=== PATIENT | female | born 2000 | race Caucasian/White ===

== ENCOUNTER → 2020-06-14 12:52 | Outpatient (CLI) | payer BC, SELFPAY | PROVIDERS: PCP Internal Medicine Adolescent Medicine; Visit Provider Nurse Practitioner Family | DX: G47.33 Obstructive sleep apnea (adult) (pediatric) (principal); R06.83 Snoring | CPT/HCPCS: G0399 ==

== ENCOUNTER 2020-09-16 03:32 | Emergency (ER) | payer BC, SELFPAY ==
[2020-09-16 03:43] VITALS: BP 151/102; PULSE 72; RESP 18; TEMP 36.9; O2SAT 99; BMI 54.9
--- NOTE | 2020-09-16 03:53 | ECG_ITS ---
APPROVED REPORT Exam: Resting ECG HR:73 bpm ECG Measurements Heart Rate 73 AXES MN 176 P 63 QRSd 84 QRS 37 QT 382 T 17 QTc 420 Conclusion Normal sinus rhythm Normal ECG Electronically signed by : Harry Olvera, 09/18/2020 14:49:08
--- NOTE | 2020-09-16 03:55 | XR_ITS ---
PROCEDURE: XR CHEST 2V CLINICAL HISTORY: CP COMPARISON: CR XR CHEST 2V from 10/24/2019 FINDINGS: The cardiomediastinal silhouette and pulmonary vascularity are within normal limits. There are subtle ill-defined opacities in the right infrahilar region and right lower lobe best appreciated on the lateral projection. Right upper lung field and left lung ramirez are clear. There is no pleural fluid. IMPRESSION: Findings suggesting minimal right infrahilar right lower lobe bronchopneumonia Dictated by: Dr. Parveen Arboleda MD 09/16/2020 07:43 Dr. Parveen Arboleda MD in [place] 09/16/2020 07:43
[2020-09-16 04:03] LABS: Basophils # 0.1 K/mm3 (0-0.2); Basophils % 0.5 % (0.1-2.0); Eosinophils # 0.1 K/mm3 (0.0-0.4); Eosinophils % 1.1 % (0.1-12.0); Hemoglobin 13.2 g/dL (12.2-16.2); Lymphocytes # 4.2 K/mm3 (0.7-4.5); Lymphocytes % 37.7 % (10-50); Mean Corpuscular HGB Conc 31.6 g/dL (31.8-35.4); Mean Corpuscular Hemoglobin 27.6 pg (27.0-31.2); Mean Corpuscular Volume 87.5 fl (81-99); Mean Platelet Volume 7.4 fl (7.4-10.4); Monocytes # 0.7 K/mm3 (0.1-1.0); Monocytes % 5.8 % (1.7-9.3); Neutrophils # 6.2 K/mm3 (1.8-7.8); Platelet Count 359 K/mm3 (142-424); Red Cell Distribution Width 13.3 % (11.5-17.5); White Blood Count 11.2 K/mm3 (4.5-13.0)
--- NOTE | 2020-09-16 04:03 | HMH.EDGENADL ---
ED Disposition Clinical Impression: Atypical chest pain Disposition: Home, Self-Care Condition on Discharge: Good Referrals: Harry Olvera MD [Primary Care Provider] - - Critical Care Critical Care Time: No Attestation: On 09/16/20, the high probability of a clinically significant, sudden or life threatening deterioration of the following system(s) required my full and direct attention, intervention and personal management. The time I documented below is in addition to time spent performing reported procedures but includes the following listed in this critical care notation. Medical Decision Making - Medical Records Medical records reviewed: Yes: I reviewed the patient's medical records. - Darius Inquiry Pt receiving controlled substance: No Vital Signs: 09/16/20 03:43 Temperature 98.5 F Temperature Source Oral Pulse Rate [Right] 72 Respiratory Rate 18 Blood Pressure [Right Arm] 151/102 H Blood Pressure Mean [Right Arm] 118 Blood Pressure Source [Right Arm] Automatic Cuff Blood Pressure Position [Right Arm] Sitting 02 Sat by Pulse Oximetry 99 Oxygen Delivery Method Room Air - Lab Data Lab Results 09/16/20 03:45: WBC 11.2, RBC 4.80, Hgb 13.2, Hct 42.0, MCV 87.5, MCH 27.6, MCHC 31.6 L, RDW 13.3, Plt Count 359, MPV 7.4, Neut % (Auto) 55.0, Lymph % (Auto) 37.7, [place] % (Auto) 5.8, Eos % (Auto) 1.1, Baso % (Auto) 0.5, Neut # (Auto) 6.2, Lymph # (Auto) 4.2, [place] # (Auto) 0.7, Eos # (Auto) 0.1, Baso # (Auto) 0.1 09/16/20 03:45: Sodium 138, Potassium 3.8, Chloride 105, Carbon Dioxide 24, Anion Gap 12.8, BUN 12, Creatinine 0.60, Estimated Creat Clear 135, Estimated GFR 127, Est GFR ( Amer) 154, Glucose 109 H, Calcium 9.3, Total Bilirubin 0.1 L, AST 22, ALT 13, Alkaline Phosphatase 70, Troponin I < 0.01, Total Protein 7.1, Albumin 3.9, Globulin 3.2, Albumin/Globulin Ratio 1.2 09/16/20 03:45: Serum HCG, Qual Negative Result diagrams: 09/16/20 03:45 09/16/20 03:45 Orders (Tests/Meds): ED MEDICATIONS Generic Name Dose Route Start Last Admin Trade Name Freq PRN Reason Stop Dose Admin Sodium Chloride 1,000 mls @ 999 mls/hr 09/16/20 04:00 09/16/20 04:01 Sod Chlor 0.9% 1000ml Bag IV 09/16/20 05:00 999 mls/hr .Q1H1M MITESH Administration Discontinued Medications Generic Name Dose Route Start Last Admin Trade Name Freq PRN Reason Stop Dose Admin Acetaminophen 1,000 mg 09/16/20 03:54 09/16/20 04:01 Acetaminophen 500mg Tab PO 09/16/20 03:55 1,000 mg ONCE ONE Administration Belladonna Alkaloids 60 ml 09/16/20 03:54 09/16/20 04:01 Gi Cocktail 60ml Udc PO 09/16/20 03:55 60 ml ONCE ONE Administration Iopamidol 50 ml 09/16/20 05:25 09/16/20 05:26 Iopamidol-370 (76%); 50ml Vial IV 09/16/20 05:26 50 ml ONCE ONE Administration Iopamidol 25 ml 09/16/20 05:26 09/16/20 05:26 Iopamidol-370 (76%); 50ml Vial IV 09/16/20 05:27 25 ml ONCE ONE Administration Morphine Sulfate 4 mg 09/16/20 04:48 09/16/20 05:02 Morphine 4mg/Ml Syringe IV 09/16/20 04:49 4 mg ONCE ONE Administration Ondansetron HCl 4 mg 09/16/20 03:56 09/16/20 04:01 Ondansetron 4mg Odt SL 09/16/20 03:57 4 mg ONCE ONE Administration Sodium Chloride 10 ml 09/16/20 05:25 09/16/20 05:26 Sodium Chloride 0.9% 10ml Syr (Rad Only) IV 09/16/20 05:26 10 ml ONCE ONE Administration ORDERS Category Date Time Status CT abdomen pelvis w con Stat Cat Scan 09/16/20 04:47 Taken CXR 2 view (NOT portable) [XR chest 2V] Stat Exams 09/16/20 03:55 Taken Troponin I Q3H Lab 09/16/20 07:00 Ordered Troponin I Q3H Lab 09/16/20 10:00 Ordered Urinalysis and Microscopic Stat Lab 09/16/20 03:53 Ordered ECG Request by /[place] Stat Y 09/16/20 03:53 Ordered Medical Decision Narrative: Patient is a 20-year-old female who presents today with chest pain. PERC negative. Low risk atypical chest pain. Given GI cocktail, Tylenol, Zofran as patient also has GERD symptoms. EKG n
[2020-09-16 04:11] LABS: Alanine Aminotransferase 13 U/L (12-78); Albumin Level 3.9 g/dl (3.5-5.0); Albumin/Globulin Ratio 1.2 (1.1-1.8); Alkaline Phosphatase 70 U/L (38-126); Anion Gap 12.8 mEq/L (5-15); Aspartate Amino Transferase 22 U/L (14-36); Blood Urea Nitrogen 12 mg/dl (7-17); Calcium 9.3 mg/dl (8.4-10.2); Carbon Dioxide 24 mmol/L (22.0-30.0); Chloride 105 mmol/L (98-107); Creatinine Clearance Estimated 135 mL/min (50-200); Estimated Glomerular Filt Rate 127 ml/min (>60); GFR (African American) 154 ML/MIN (>60); Globulin 3.2 g/dL (1.3-3.2); Glucose 109 mg/dl (74-100); Potassium 3.8 mmoL/L (3.5-5.1); Sodium 138 mmol/L (136-145); Total Protein,Serum 7.1 g/dl (6.3-8.2)
[2020-09-16 04:14] LABS: HCG Qualitative, Serum Negative (Negative)
[2020-09-16 04:20] LABS: Bilirubin,Total 0.1 mg/dl (0.2-1.3)
[2020-09-16 04:27] LABS: Troponin I < 0.01 ng/ml (0.00-0.034)
--- NOTE | 2020-09-16 04:47 | CT_ITS ---
PROCEDURE: CT ABDOMEN PELVIS W CON CLINICAL INDICATION: abdominal pain COMPARISON: No exams were available for comparison TECHNIQUE: IV Contrast: 75ML OPTIRAY 350 Oral Contrast none given Axial images obtained with sagittal and coronal reformats. All CT scans at the facility use one or more dose reduction, viz: automated exposure control, ma/kV adjustment per patient size (including targeted exams where dose is matched to indication, i.e. head), or iterative reconstruction technique. FINDINGS: Lower thorax: The lower lung ramirez are clear and there is no pleural fluid. The suspected pneumonic infiltrate right lower lobe seen on chest film likely was secondary to difficulty in evaluating the lower lung ramirez due to the patient's obesity. ABDOMEN: Liver: No masses or biliary dilatation. Gallbladder: Nondistended. No radio opaque stones. Pancreas: No masses or peripancreatic fluid collections. Spleen: unremarkable Adrenals: unremarkable Kidneys/ureters: The kidneys are normal in size and show symmetrical function both appearing normal. ABDOMEN & PELVIS: Stomach bowel: The stomach and duodenal sweep are normal. The small bowel is unremarkable. The appendix is air-filled and normal in caliber. There is scattered stool and gas seen throughout the colon though most of the descending and sigmoid colon are decompressed. The rectum is normal. Peritoneum: No abnormal fluid collections. No obvious inflammatory changes. No free air. Lymph nodes: No enlarged lymph nodes apparent. Vasculature: No evidence of abdominal aortic aneurysm. No retroperitoneal hemorrhage evident. Bones: No acute fracture PELVIS: Reproductive: unremarkable Bladder: The urinary bladder is moderately distended with urine and appears normal, there is no free fluid in the pelvis. Appendix: Normal air-filled appendix identified. IMPRESSION: No acute abdominal or pelvic pathology identified Dictated by: Dr. Parveen Arboleda MD 09/16/2020 07:50 Dr. Parveen Arboleda MD in [place] 09/16/2020 07:50
[2020-09-16 06:01] VITALS: BP 148/92; PULSE 76; RESP 14; TEMP 36.9; O2SAT 98
== END 2020-09-16 06:04 | disposition home or self-care (01) ==
PROVIDERS: Emergency Provider Emergency Medicine; PCP Internal Medicine Adolescent Medicine
DX: R07.89 Other chest pain (principal); K21.9 Gastro-esophageal reflux disease without esophagitis; F33.1 Major depressive disorder, recurrent, moderate; Z79.899 Other long term (current) drug therapy; Z88.0 Allergy status to penicillin
CPT/HCPCS: 71046; 74177; 80053; 84484; 84703; 85025; 93005; 96365; 96375; 99283; Q9967

== ENCOUNTER 2021-02-22 17:22 | Emergency (ER) | payer BC, SELFPAY ==
[2021-02-22 17:55] VITALS: RESP 18; TEMP 39.4; O2SAT 97; BMI 52.9
--- NOTE | 2021-02-22 18:08 | HMH.EDUTC ---
[facility] [place] Disposition Clinical Impression: Viral syndrome Disposition: Home, Self-Care Condition on Discharge: Good Instructions: Preventing the Spread of Coronavirus Discharge Instructions Additional Instructions: Drink plenty of fluids. Take tylenol or ibuprofen for pain or fever. Take the medications as directed. Follow up with your regular doctor. GO TO THE ER FOR ANY WORSENING SYMPTOMS FOLLOW THE DIRECTIONS ON THE COVID-19 HAND OUT THAT WE GAVE YOU REGARDING SELF-ISOLATION UNTIL YOU KNOW YOUR COVID-19 RESULTS Prescriptions: Brompheniramine/Pseudoephed/Dm [Bromfed Dm Cough Syrup] 5 ml PO Q6HP PRN #240 syrup PRN Reason: Cough Transmission Status: [facility] Azithromycin [Z-Irvin 250mg Tab*] 250 mg PO UD DOSE PK #6 tab Transmission Status: Sent to [facility] Referrals: Soumya Shukla APRN [Primary Care Provider] - Forms: Work/School Release Time of Disposition: 18:30 Medical Decision Making - Medical Records Medical records reviewed: No: I reviewed the patient's medical records. - Darius Inquiry Pt receiving controlled substance: No Vital Signs: 02/22/21 17:55 02/22/21 18:36 Temperature 103.0 F H 101.1 F H Temperature Source Oral Oral Pulse Rate 101 H Respiratory Rate 18 18 Blood Pressure 134/85 02 Sat by Pulse Oximetry 97 Oxygen Delivery Method Room Air - Lab Data Lab Results 02/22/21 20:54: Strep Scn Rapid Clinic Negative Orders (Tests/Meds): ORDERS Category Date Time Status Covid-19 Nasal PCR ([facility]) Routine Lab 02/22/21 18:10 Received Strep Screen Confirmation Stat Micro 02/22/21 20:54 Received [facility] [place] HPI - General Stated complaint: fever,ANTONY,Chills,COVID test Time Seen by Provider: 02/22/21 18:08 Mode of Arrival: Ambulatory Source of Information: Patient Limitations: No Limitations Description of Symptoms (Recalled from Triage Doc. by RN): Fever, dizziness, chills, n/v HEENT Symptoms (Recalled from RN notes): No Resp Symptoms (Recalled from RN notes): No Skin Symptoms (Recalled from RN notes): No MS Symptoms (Recalled from RN notes): No Functional Status (Recalled from RN notes): na - History of Present Illness Provider Complaint: She states that for the past 2 days she has felt bad and ran a low grade fever. She denies any cough and congestion. She does admit to a sore throat. - Related Data Home Medications Medication Instructions Recorded Confirmed Escitalopram Oxalate [Lexapro] 20 mg PO DAILY 10/24/19 10/24/19 Previous Rx's Medication Instructions Recorded Nitrofurantoin Monohyd/M-Cryst 100 mg PO BID 7 Days #14 cap 10/24/19 [Macrobid 100 mg Capsule] Azithromycin [Z-Irvin 250mg Tab*] 250 mg PO UD DOSE PK #6 tab 02/22/21 Brompheniramine/Pseudoephed/Dm 5 ml PO Q6HP PRN #240 syrup 02/22/21 [Bromfed Dm Cough Syrup] Allergies Allergy/AdvReac Type Severity Reaction Status Date / Time Penicillins Allergy Verified 10/24/19 09:03 - Worker's Comp Is this a Worker's Comp case?: No [facility] History - Hepatitis A Screen Drug use history?: No High risk sexual behaviors?: No History of sexually transmitted infection?: No Currently employed?: No Childcare worker?: No Do you have indoor plumbing?: Yes Do you have electricity?: Yes Attestation statement:: This patient has been screened for Hepatitis A risk factors. I have reviewed the patient's past medical history: Yes Medical History: Reports:: Depression Denies:: Cancer, Diabetes Mellitus Type 1, Diabetes Mellitus Type 2, MRSA - Social History Alcohol Intake: never Occupational Status: employed Housing: house - Psychiatric History Pschychiatric History:: Reports:: Depression ROS Obtained: Yes All systems reviewed & no additional complaints - Constitutional Constitutional: Reports system reviewed and no additional complaints, except as docu, Denies chills, Denies fever(s) - Eyes Eyes: Reports system reviewed and no additional compla
[2021-02-22 18:36] VITALS: BP 134/85; PULSE 101; RESP 18; TEMP 38.4
[2021-02-22 20:56] LABS: UTC Strep Screen (Rapid) Negative (Negative)
[2021-02-23 19:32] LABS: UTC Influenza A Antigen Negative (Negative); UTC Influenza B Antigen Negative (Negative)
== END 2021-02-22 18:38 | disposition home or self-care (01) ==
PROVIDERS: Emergency Provider Nurse Practitioner Family; PCP Nurse Practitioner Family
DX: Z20.822 Contact with and (suspected) exposure to COVID-19 (principal); B34.9 Viral infection, unspecified; Z88.0 Allergy status to penicillin
CPT/HCPCS: 87804; 87880; 99202; G0463; U0003

== ENCOUNTER → 2021-05-17 10:55 | Outpatient (CLI) | payer BC, SELFPAY ==
[2021-05-17 11:16] LABS: Basophils % 0.3 % (0.1-2.0); Eosinophils # 0.1 K/mm3 (0.0-0.4); Eosinophils % 1.1 % (0.1-12.0); Hematocrit 41.1 % (37.0-47.0); Hemoglobin 12.7 g/dL (12.2-16.2); Lymphocytes # 2.4 K/mm3 (0.7-4.5); Lymphocytes % 31.3 % (10-50); Mean Corpuscular HGB Conc 30.9 g/dL (31.8-35.4); Mean Corpuscular Hemoglobin 26.8 pg (27.0-31.2); Mean Corpuscular Volume 86.7 fl (81-99); Mean Platelet Volume 6.7 fl (7.4-10.4); Monocytes # 0.5 K/mm3 (0.1-1.0); Monocytes % 5.9 % (1.7-9.3); Neutrophils # 4.6 K/mm3 (1.8-7.8); Neutrophils % 61.3 % (37.0-80.0); Platelet Count 400 K/mm3 (142-424); Red Blood Count 4.74 M/mm3 (4.20-5.40); White Blood Count 7.6 K/mm3 (4.5-13.0)
[2021-05-17 11:23] LABS: Chloride 106 mmol/L (98-107); Potassium 4.4 mmoL/L (3.5-5.1); Sodium 141 mmol/L (136-145)
[2021-05-17 11:25] LABS: Alanine Aminotransferase 10 U/L (12-78); Aspartate Amino Transferase 17 U/L (14-36); Blood Urea Nitrogen 8 mg/dl (7-17); Estimated Glomerular Filt Rate 107 ml/min (>60); GFR (African American) 129 ML/MIN (>60)
[2021-05-17 11:26] LABS: Albumin Level 4.1 g/dl (3.5-5.0); Albumin/Globulin Ratio 1.2 (1.1-1.8); Alkaline Phosphatase 64 U/L (38-126); Anion Gap 10.4 mEq/L (5-15); Bilirubin,Total 0.2 mg/dl (0.2-1.3); Calcium 9.2 mg/dl (8.4-10.2); Carbon Dioxide 29 mmol/L (22.0-30.0); Chol/HDL Ratio 2.8 (1-3.5); Cholesterol 168 mg/dl (140-200); Globulin 3.4 g/dL (1.3-3.2); Glucose 97 mg/dl (74-100); HDL Cholesterol 61 mg/dl (40-60); Total Protein,Serum 7.5 g/dl (6.3-8.2); Triglycerides 61 mg/dl (30-150); VLDL Cholesterol 12 mg/dL (0-40)
[2021-05-17 11:30] LABS: Hemoglobin A1C 5.5 % (4.0-6.0)
[2021-05-17 11:37] LABS: Direct LDL Cholesterol 82.19 mg/dL (100-129)
[2021-05-17 11:56] LABS: T4 (Thyroxine) 11.7 ug/dl (5.53-11.0); Triiodothryronine (T3) Uptake 26 % (23.5-40.5)
[2021-05-17 12:10] LABS: Thyroid Stimulating Hormone 1.45 uIU/mL (0.465-4.68)
== END ==
PROVIDERS: Visit Provider Nurse Practitioner Family
DX: Z01.818 Encounter for other preprocedural examination (principal); Z68.43 Body mass index [BMI] 50.0-59.9, adult; E66.9 Obesity, unspecified
CPT/HCPCS: 36415; 80053; 80061; 83036; 84436; 84443; 84479; 85025

== ENCOUNTER → 2021-05-23 14:24 | Outpatient (CLI) | payer BC, SELFPAY | PROVIDERS: PCP Nurse Practitioner Family; Visit Provider Internal Medicine Cardiovascular Disease | DX: Z01.810 Encounter for preprocedural cardiovascular examination (principal) | CPT/HCPCS: 93306 ==

== ENCOUNTER → 2021-06-19 10:31 | Outpatient (CLI) | payer BC, SELFPAY | PROVIDERS: Visit Provider Internal Medicine Adolescent Medicine | DX: Z20.822 Contact with and (suspected) exposure to COVID-19 (principal) | CPT/HCPCS: U0003 ==

== ENCOUNTER 2021-10-19 15:29 | Emergency (ER) | payer BC, SELFPAY ==
--- NOTE | 2021-10-19 | ECG_ITS ---
APPROVED REPORT Exam: Resting ECG HR:70 bpm ECG Measurements Heart Rate 70 AXES SD 158 P 55 QRSd 80 QRS 34 QT 376 T 18 QTc 406 Conclusion Normal sinus rhythm Normal ECG Electronically signed by : Harry Olvera MD 10/20/2021 09:04:26
[2021-10-19 15:30] VITALS: BP 132/42; PULSE 83; RESP 16; TEMP 36.8; O2SAT 96; BMI 57.9
--- NOTE | 2021-10-19 16:06 | HMH.EDABDPAI ---
ED Disposition Clinical Impression: Gastritis Qualifiers: Gastritis type: unspecified gastritis Chronicity: acute Gastritis bleeding: without bleeding Qualified Code(s): K29.00 - Acute gastritis without bleeding Disposition: Home Health Service Condition on Discharge: Good Instructions: DI for Gastritis Prescriptions: Famotidine [Pepcid 20mg Tablet] 20 mg PO DAILY #10 tab [facility] Status: [facility] Ondansetron [Zofran 4mg ODT] 4 mg PO BIDP PRN #10 tab PRN Reason: Nausea Transmission Status: Pending to [facility] Referrals: Soumya Shukla APRN [Primary Care Provider] - - Critical Care Critical Care Time: No Attestation: On 10/19/21, the high probability of a clinically significant, sudden or life threatening deterioration of the following system(s) required my full and direct attention, intervention and personal management. The time I documented below is in addition to time spent performing reported procedures but includes the following listed in this critical care notation. Medical Decision Making - Medical Records Medical records reviewed: Yes: I reviewed the patient's medical records. - Darius Inquiry Pt receiving controlled substance: No Vital Signs: 10/19/21 15:30 Temperature 98.2 F Temperature Source Oral Pulse Rate [Radial] 83 Respiratory Rate 16 Blood Pressure [Right Radial Artery] 132/42 L Blood Pressure Mean [Right Radial Artery] 72 Blood Pressure Position [Right Radial Artery] Sitting 02 Sat by Pulse Oximetry 96 - Lab Data Lab Results 10/19/21 15:53: WBC 11.6 H, RBC 4.83, Hgb 13.3, Hct 42.7, MCV 88.4, MCH 27.5, MCHC 31.1 L, RDW 13.7, Plt Count 326, MPV 6.9 L, Neut % (Auto) 73.7, Lymph % (Auto) 19.5, [place] % (Auto) 5.6, Eos % (Auto) 0.8, Baso % (Auto) 0.4, Neut # (Auto) 8.6 H, Lymph # (Auto) 2.3, [place] # (Auto) 0.7, Eos # (Auto) 0.1, Baso # (Auto) 0.1 10/19/21 15:53: Sodium 135 L, Potassium 4.0, Chloride 102, Carbon Dioxide 25, Anion Gap 12.0, BUN 10, Creatinine 0.60, Estimated Creat Clear 133, Estimated GFR 126, Est GFR ( Amer) 153, Glucose 135 H, Calcium 9.1, Total Bilirubin 0.2, AST 23, ALT 19, Alkaline Phosphatase 71, Troponin I < 0.01, Total Protein 7.3, Albumin 4.2, Globulin 3.1, Albumin/Globulin Ratio 1.4 10/19/21 15:53: Lipase 44 10/19/21 15:53: Serum HCG, Qual Negative 10/19/21 18:05: Urine Color Yellow, Urine Appearance Clear, Urine pH 7.0, Ur Specific [place] 1.010, Urine Protein Negative, Urine Glucose (UA) Negative, Urine Ketones Negative, Urine Blood Negative, Urine Nitrate Negative, Urine Bilirubin Negative, Urine Urobilinogen 0.2, Ur Leukocyte Esterase Negative, Urine WBC Occasional, Ur Squamous Epith Cells 5-10 Result diagrams: 10/19/21 15:53 10/19/21 15:53 Orders (Tests/Meds): ED MEDICATIONS Discontinued Medications Generic Name Dose Route Start Last Admin Trade Name Freq PRN Reason Stop Dose Admin Belladonna Alkaloids 60 ml 10/19/21 15:44 10/19/21 15:57 Gi Cocktail 60ml Udc PO 10/19/21 15:45 60 ml ONCE ONE Administration Ondansetron HCl 4 mg 10/19/21 15:56 10/19/21 15:57 Ondansetron 4mg/2ml Vial IV 10/19/21 15:57 4 mg ONCE ONE Administration ORDERS Category Date Time Status Troponin I Q3H Lab 10/19/21 18:45 Ordered Troponin I Q3H Lab 10/19/21 21:45 Ordered - ECG Data Tracing #1 I reviewed this ECG and interpreted as documented below: ECG initial impression date: 10/19/21 ECG initial impression time: 15:59 ECG normal with no acute: arrhythmias, ischemia, conduction abnormalities, chamber hypertrophy Normal Sinus Rhythm: Yes - Reevaluation(s) Time: 18:18 Reevaluation #1: On reevaluation, patient is pain-free. Tolerating oral intake. Repeat abdominal exam is benign. Patient is to follow-up with PCP in 48 hours. Given strict return precautions. Verbalized understanding. Medical Decision Narrative: 21-year-old female presented to the emergency department with susan
[2021-10-19 16:17] LABS: Basophils # 0.1 K/mm3 (0-0.2); Basophils % 0.4 % (0.1-2.0); Eosinophils # 0.1 K/mm3 (0.0-0.4); Eosinophils % 0.8 % (0.1-12.0); Hematocrit 42.7 % (37.0-47.0); Hemoglobin 13.3 g/dL (12.2-16.2); Lymphocytes # 2.3 K/mm3 (0.7-4.5); Lymphocytes % 19.5 % (10-50); Mean Corpuscular HGB Conc 31.1 g/dL (31.8-35.4); Mean Corpuscular Hemoglobin 27.5 pg (27.0-31.2); Mean Corpuscular Volume 88.4 fl (81-99); Mean Platelet Volume 6.9 fl (7.4-10.4); Monocytes # 0.7 K/mm3 (0.1-1.0); Monocytes % 5.6 % (1.7-9.3); Neutrophils # 8.6 K/mm3 (1.8-7.8); Neutrophils % 73.7 % (37.0-80.0); Platelet Count 326 K/mm3 (142-424); Red Blood Count 4.83 M/mm3 (4.20-5.40); Red Cell Distribution Width 13.7 % (11.5-17.5); White Blood Count 11.6 K/mm3 (4.8-10.8)
[2021-10-19 16:28] LABS: HCG Qualitative, Serum Negative (Negative)
[2021-10-19 16:32] LABS: Chloride 102 mmol/L (98-107); Sodium 135 mmol/L (136-145)
[2021-10-19 16:34] LABS: Lipase 44 U/L (23-300)
[2021-10-19 16:35] LABS: Alanine Aminotransferase 19 U/L (12-78); Albumin Level 4.2 g/dl (3.5-5.0); Albumin/Globulin Ratio 1.4 (1.1-1.8); Alkaline Phosphatase 71 U/L (38-126); Aspartate Amino Transferase 23 U/L (14-36); Bilirubin,Total 0.2 mg/dl (0.2-1.3); Blood Urea Nitrogen 10 mg/dl (7-17); Carbon Dioxide 25 mmol/L (22.0-30.0); Creatinine Clearance Estimated 133 mL/min (50-200); Estimated Glomerular Filt Rate 126 ml/min (>60); GFR (African American) 153 ML/MIN (>60); Globulin 3.1 g/dL (1.3-3.2); Total Protein,Serum 7.3 g/dl (6.3-8.2)
[2021-10-19 16:36] LABS: Calcium 9.1 mg/dl (8.4-10.2); Glucose 135 mg/dl (74-100)
[2021-10-19 16:48] LABS: Troponin I < 0.01 ng/ml (0.00-0.034)
[2021-10-19 18:12] LABS: Appearance,Urine CLEAR (Clear); Bilirubin,Urine Negative (Negative); Blood, Urine Negative (Negative); Color,Urine YELLOW (Yellow); Glucose,Urine (UA) Negative (Negative); Ketones,Urine Negative (Negative); Leukocyte Esterase,Urine Negative (Negative); Microscopic, Urine URINE MICROSCOPIC (MICROSCOPIC); Nitrate,Urine Negative (Negative); Protein,Urine Negative (Negative); Urobilinogen,Urine 0.2 EU/dl (0.2)
[2021-10-19 18:14] LABS: WBC,Urine Occasional #/hpf (0-3)
[2021-10-19 18:41] VITALS: BP 128/32; PULSE 80; RESP 16; TEMP 36.8; O2SAT 97
== END 2021-10-19 18:42 | disposition home health service (06) ==
PROVIDERS: Emergency Provider Emergency Medicine; PCP Nurse Practitioner Family
DX: K29.00 Acute gastritis without bleeding (principal); F33.1 Major depressive disorder, recurrent, moderate
CPT/HCPCS: 80053; 81001; 83690; 84484; 84703; 85025; 93005; 96375; 99283; J2405

== ENCOUNTER → 2022-03-11 11:05 | Outpatient (CLI) | payer BC, SELFPAY ==
[2022-03-11 13:54] LABS: Hematocrit 37.8 % (37.0-47.0); Hemoglobin 11.7 g/dL (12.2-16.2); Mean Corpuscular Hemoglobin 27.5 pg (27.0-31.2); Mean Corpuscular Volume 88.8 fl (81-99); Platelet Count 336 K/mm3 (142-424); Red Blood Count 4.26 M/mm3 (4.20-5.40); Red Cell Distribution Width 13.9 % (11.5-17.5); White Blood Count 5.5 K/mm3 (4.8-10.8)
[2022-03-11 14:06] LABS: Alanine Aminotransferase 18 U/L (12-78); Albumin Level 3.2 g/dl (3.5-5.0); Albumin/Globulin Ratio 1.4 (1.1-1.8); Alkaline Phosphatase 50 U/L (38-126); Anion Gap 5.7 mEq/L (5-15); Aspartate Amino Transferase 17 U/L (14-36); Bilirubin,Total 0.5 mg/dl (0.2-1.3); Blood Urea Nitrogen 3 mg/dl (7-17); Calcium 8.4 mg/dl (8.4-10.2); Carbon Dioxide 28 mmol/L (22.0-30.0); Chloride 108 mmol/L (98-107); Chol/HDL Ratio 4.7 (1-3.5); Cholesterol 173 mg/dl (140-200); Estimated Glomerular Filt Rate 156 ml/min (>60); GFR (African American) 188 ML/MIN (>60); Globulin 2.3 g/dL (1.3-3.2); Glucose 92 mg/dl (74-100); HDL Cholesterol 37 mg/dl (40-60); Magnesium 1.6 mg/dl (1.6-2.3); Phosphorous 3.9 mg/dl (2.5-4.5); Potassium 3.7 mmoL/L (3.5-5.1); Sodium 138 mmol/L (136-145); Total Protein,Serum 5.5 g/dl (6.3-8.2); Triglycerides 89 mg/dl (30-150); VLDL Cholesterol 18 mg/dL (0-40)
[2022-03-11 14:18] LABS: Direct LDL Cholesterol 95.37 mg/dL (100-129); Intact Parathyroid Hormone 45.6 pg/mL (7.5-53.5)
[2022-03-11 14:36] LABS: Thyroid Stimulating Hormone 1.09 uIU/mL (0.465-4.68)
[2022-03-11 15:18] LABS: Folate 4.36 ng/mL; Hemoglobin A1C 5.5 % (4.0-6.0)
[2022-03-11 15:42] LABS: Iron 93 ug/dL (37-170)
[2022-03-12 12:12] LABS: Prealbumin 20 mg/dL (14-35)
[2022-03-19 17:11] LABS: Methylmalonic Acid 85 nmol/L (0-378)
[2022-03-21 15:20] LABS: Vitamin A 25.9 ug/dL (18.9-57.3); Vitamin E Alpha Tocopherol 6.9 mg/L (5.9-19.4)
== END ==
PROVIDERS: Visit Provider Nurse Practitioner Family
DX: R63.4 Abnormal weight loss (principal); E66.01 Morbid (severe) obesity due to excess calories; Z86.39 Personal history of other endocrine, nutritional and metabolic disease; Z13.21 Encounter for screening for nutritional disorder
CPT/HCPCS: 36415; 80053; 80061; 82131; 82306; 82728; 82746; 83036; 83540; 83735; 83970; 84100; 84134; 84425; 84443; 84446; 84590; 85014; 85018; 85048; 85049

== ENCOUNTER → 2022-08-16 08:34 | Outpatient (CLI) | payer BC, SELFPAY ==
[2022-08-16 09:14] LABS: Hemoglobin A1C 5.2 % (4.0-6.0)
[2022-08-16 09:32] LABS: Basophils # 0.1 K/mm3 (0-0.2); Basophils % 0.9 % (0.1-2.0); Eosinophils # 0.1 K/mm3 (0.0-0.4); Eosinophils % 1.3 % (0.1-12.0); Hematocrit 38.1 % (37.0-47.0); Hemoglobin 12.6 g/dL (12.2-16.2); Lymphocytes # 1.9 K/mm3 (0.7-4.5); Lymphocytes % 27.8 % (10-50); Mean Corpuscular Hemoglobin 29.6 pg (27.0-31.2); Mean Corpuscular Volume 89.8 fl (81-99); Mean Platelet Volume 7.5 fl (7.4-10.4); Monocytes # 0.4 K/mm3 (0.1-1.0); Neutrophils # 4.5 K/mm3 (1.8-7.8); Platelet Count 338 K/mm3 (142-424); Red Blood Count 4.24 M/mm3 (4.20-5.40); Red Cell Distribution Width 14.1 % (11.5-17.5); White Blood Count 6.9 K/mm3 (4.8-10.8)
[2022-08-16 09:55] LABS: Alanine Aminotransferase 10 U/L (12-78); Albumin Level 3.5 g/dl (3.5-5.0); Albumin/Globulin Ratio 1.3 (1.1-1.8); Alkaline Phosphatase 58 U/L (38-126); Anion Gap 11.7 mEq/L (5-15); Aspartate Amino Transferase 16 U/L (14-36); Bilirubin,Total 0.3 mg/dl (0.2-1.3); Blood Urea Nitrogen 6 mg/dl (7-17); Calcium 8.6 mg/dl (8.4-10.2); Carbon Dioxide 27 mmol/L (22.0-30.0); Chloride 103 mmol/L (98-107); Cholesterol 156 mg/dl (140-200); Estimated Glomerular Filt Rate 154 ml/min (>60); GFR (African American) 187 ML/MIN (>60); Globulin 2.6 g/dL (1.3-3.2); Glucose 87 mg/dl (74-100); HDL Cholesterol 39 mg/dl (40-60); Potassium 3.7 mmoL/L (3.5-5.1); Sodium 138 mmol/L (136-145); Total Protein,Serum 6.1 g/dl (6.3-8.2); Triglycerides 52 mg/dl (30-150); VLDL Cholesterol 10 mg/dL (0-40)
[2022-08-16 10:07] LABS: Iron 63 ug/dL (37-170)
[2022-08-16 10:12] LABS: 25-OH Vitamin D, Total 39.7 ng/mL (30-100); Direct LDL Cholesterol 95.29 mg/dL (100-129)
[2022-08-16 10:16] LABS: Total Iron Binding Capacity 297 ug/dL (265-497)
[2022-08-16 10:30] LABS: Ferritin 47.1 ng/ml (6.24-137)
[2022-08-20 16:17] LABS: Methylmalonic Acid 95 nmol/L (0-378); Vitamin B1 70.3 nmol/L (66.5-200.0)
[2022-08-21 09:13] LABS: Vitamin A 17.5 ug/dL (18.9-57.3); Vitamin E Alpha Tocopherol 9.1 mg/L (5.9-19.4); Vitamin E Gamma Tocopherol 2.7 mg/L (0.7-4.9)
== END ==
PROVIDERS: PCP Internal Medicine Adolescent Medicine; Visit Provider Nurse Practitioner Family
DX: Z90.3 Acquired absence of stomach [part of] (principal)
CPT/HCPCS: 36415; 80053; 80061; 82131; 82306; 82728; 82746; 83036; 83540; 83550; 84425; 84446; 84590; 85025

== ENCOUNTER 2024-05-18 19:57 | Emergency (ER) | payer SELFPAY ==
[2024-05-18 19:58] VITALS: BP 148/73; PULSE 72; RESP 16; TEMP 36.9; O2SAT 99; BMI 42.7
--- NOTE | 2024-05-18 20:05 | ECG_ITS ---
APPROVED REPORT Exam: Resting ECG HR:65 bpm ECG Measurements Heart Rate 65 AXES PA 190 P 48 QRSd 76 QRS 58 QT 348 T 31 QTc 359 Conclusion SINUS RHYTHM NORMAL ECG Electronically signed by : SRIDEVI BOSE, 05/18/2024 22:46:13
--- NOTE | 2024-05-18 20:18 | ED_ITS ---
Discharge Plan Disposition Patient Disposition: Home, Self-Care Condition: Good Prescriptions Prescriptions: New ondansetron 4 mg tablet,disintegrating 4 mg PO Q6H PRN (Reason: nausea and vomiting) Qty: 10 0RF No Action sertraline [Zoloft] 50 mg tablet 50 mg PO DAILY azithromycin 250 MG tablet 250 mg PO UD DOSE PK Qty: 6 0RF Rx Instructions: Take two (2) tablets today, then one (1) tablet days #2 thru #5 hymhmaemyaoejzp-ctoaqjagh-ZR 118 ML syrup 5 ml PO Q6HP PRN (Reason: Cough) Qty: 240 0RF ondansetron 4 MG tablet,disintegrating 4 mg PO BIDP PRN (Reason: Nausea) Qty: 10 0RF famotidine 20 MG tablet 20 mg PO DAILY Qty: 10 0RF escitalopram oxalate 20 MG tablet 20 mg PO DAILY nitrofurantoin monohyd/m-cryst 100 MG capsule 100 mg PO BID 7 Days Qty: 14 0RF Referrals Follow up/Referrals: Marlene Garcia APRN [Primary Care Provider] - See instructions Activity Restrictions/Add. Instructions Additional Instructions/Restrictions: Return to ER for any worsening symptoms as needed. Follow-up with PCP and 1 week. Clinical Impressions Clinical Impression: Dizziness, Nausea Discharge ED Provider: Oswaldo Guy General Adult HPI <KELLEY Scott - Last Filed: 05/18/24 21:42> General Chief complaint: Dizziness Stated complaint: hot flashes,dizzy,nausea Time Seen by Provider: 05/18/24 19:58 History of Present Illness HPI narrative: Patient presents for 4 to 5 days of hot flashes dizziness and nausea. There is no aggravating relieving factors. There is no provoking events. Patient states that all the symptoms are preceded by hot flash and it has gotten to the point where it can be somewhat incapacitating especially this afternoon. She denies headache fever chills hemoptysis hematochezia melena vomiting or diarrhea. She is currently on Vraylar and recently was started on fluoxetine as well. Related Data Home Medications Medication Instructions Recorded Confirmed escitalopram oxalate 20 mg tablet 20 mg PO DAILY Anxiety 10/24/19 10/24/19 sertraline 50 mg tablet (Zoloft) 50 mg PO DAILY 05/17/21 05/17/21 Previous Rx's Medication Instructions Recorded nitrofurantoin 100 mg PO BID 7 days #14 caps 10/24/19 monohydrate/macrocrystals 100 mg capsule azithromycin 250 mg tablet 250 mg PO UD DOSE PK #6 tabs 02/22/21 ajavvjxppxyibwj-goekasbfdsdvhku-XV 5 ml PO Q6HP PRN Cough ##240 02/22/21 2 mg-30 mg-10 mg/5 mL oral syrup famotidine 20 mg tablet 20 mg PO DAILY #10 tabs 10/19/21 ondansetron 4 mg disintegrating 4 mg PO BIDP PRN Nausea #10 tabs 10/19/21 tablet ondansetron 4 mg disintegrating 4 mg PO Q6H PRN nausea and 05/18/24 tablet vomiting #10 tabs Allergies Allergy/AdvReac Type Severity Reaction Status Date / Time Penicillins Allergy Verified 05/17/21 10:33 PFS <KELLEY Scott - Last Filed: 05/18/24 21:42> [facility] Disclaimer: The information contained in this section may have been updated after the patient was seen, as this information can be updated by other users. Social History Smoking Status: Never smoker alcohol intake: never current occupational status: employed Travel in the last 8 weeks: Inside the [place] housing: house <KELLEY Scott - Last Filed: 05/18/24 21:42> ROS Obtained: Yes Systems reviewed as appropriate & no additional complaints except as documented Physical Exam <KELLEY Scott - Last Filed: 05/18/24 21:42> General General appearance: alert and in no apparent distress Head Head exam: atraumatic and normal inspection Eye Eye exam: Present normal appearance, PERRL and EOMI ENT ENT exam: Present normal exam, normal oropharynx, mucous membranes moist, TM's normal bilaterally and normal external ear exam Neck Neck exam: Present normal inspection and full ROM; Absent tenderness or lymphadenopathy Chest Chest inspection: Present normal inspection and symmetric chest wall rise Respiratory Respiratory exam: Present normal lung sounds bilaterally Cardiovascular Cardiovascular exam: Present regular rate, normal rhythm and normal heart sounds Neurological Exam Neurological exam: Present alert and oriented X3 Medical Decision Making <KELLEY Scott Last Filed: 05/18/24 21:42> Medical Records Medical records reviewed: Yes I reviewed the patient's medical records. Darius Inquiry Pt receiving controlled substance: No Vital Signs: 05/18/24 19:58 05/18/24 20:30 05/18/24 21:00 Temperature 98.5 F Temperature Source Oral Pulse Rate 69 63 Pulse Rate [Left Radial] 72 Respiratory Rate 16 16 14 Blood Pressure 105/47 L 94/45 L Blood Pressure [Right Arm] 148/73 H Blood Pressure Mean [Right Arm] 98 02 Sat by Pulse Oximetry 99 100 100 Oxygen Delivery Method Room Air Room Air Room Air 05/18/24 21:55 Temperature 98.2 F Temperature Source Oral Pulse Rate 87 Pulse Rate [Left Radial] Respiratory Rate 20 Blood Pressure 109/63 L Blood Pressure [Right Arm] Blood Pressure Mean [Right Arm] 02 Sat by Pulse Oximetry Oxygen Delivery Method Room Air Lab Data Lab results reviewed: Yes I reviewed the patient's lab results. Lab Results 05/18/24 20:10: WBC 8.8, RBC 4.58, Hgb 13.0, Hct 40.9, MCV 89.4, MCH 28.5, MCHC 31.9, RDW 13.6, Plt Count 306, MPV 7.3 L, Neut % (Auto) 59.1, Lymph % (Auto) 34.5, [place] % (Auto) 5.0, Eos % (Auto) 0.8, Baso % (Auto) 0.7, Neut # (Auto) 5.2, Lymph # (Auto) 3.1, [place] # (Auto) 0.4, Eos # (Auto) 0.1, Baso # (Auto) 0.1, Sodium 139, Potassium 3.8, Chloride 110 H, Carbon Dioxide 26, Anion Gap 6.8, BUN 12, Creatinine 0.80, Estimated Creat Clear 98, Estimated GFR 89, Est GFR ( Amer) 108, Glucose 75, Calcium 9.2, Total Bilirubin 0.4, AST 24, ALT 15, Alkaline Phosphatase 62, Total Protein 7.6, Albumin 4.2, Globulin 3.4 H, Albumin/Globulin Ratio 1.2, TSH 1.10, Thyroxine (T4) 10.0, HCG, Quant < 2 05/18/24 20:10 05/18/24 20:10 Orders (Tests/Meds): ED MEDICATIONS Discontinued Medications Generic Name Dose Route Start Last Admin Trade Name Freq PRN Reason Stop Dose Admin Dexamethasone Sodium Phosphate 10 mg 05/18/24 20:32 05/18/24 20:46 Dexamethasone 4mg/Ml 5ml Mdv IV 05/18/24 20:33 10 mg ONCE ONE Administration Lactated Ringer's 1,000 mls @ 999 mls/hr 05/18/24 19:59 05/18/24 20:32 Lactated Ringer's 1000 Ml Bag IV 05/18/24 20:59 999 mls/hr .Q1H1M ONE Administration Meclizine HCl 25 mg 05/18/24 20:32 05/18/24 20:46 Meclizine 25mg Tablet PO 05/18/24 20:33 25 mg ONCE ONE Administration ORDERS Category Date Time Status CBC w/Auto Diff [Complete Blood Count Auto Diff] Stat Lab 05/18/24 20:10 Completed CMP [Comprehensive Metabolic Panel] Stat Lab 05/18/24 20:10 Completed HCG,Quantitative Stat Lab 05/18/24 20:10 Completed T4 (Thyroxine) Stat Lab 05/18/24 20:10 Completed TSH [Thyroid Stimulating Hormone] Stat Lab 05/18/24 20:10 Completed Medical Decision Narrative: In summary patient is a 43-year-old female who presents to the emergency department for evaluation of hot flashes dizziness and nausea. Patient is hemodynamically stable upon arrival, afebrile. Zickel exam is unremarkable and nonfocal [place] Coma Score 15 with no focal neurologic deficits. Differential diagnosis includes vestibular disorder versus medication side effect versus infection etc. Initial workup will be conducted with hematologic labs urinalysis. Initial interventions include crystalloid bolus Toradol Tylenol meclizine. Initial workup reviewed by me shows that her hematologic labs are nonactionable. Upon repeat evaluation patient acceptable resolution of symptoms. Given this patient will be discharged with prescription for Zofran. Patient to follow-up with PCP within 1 week to discuss continuing of Prozac. <Oswaldo Guy MD - Last Filed: 05/18/24 22:40> Vital Signs: 05/18/24 19:58 05/18/24 20:30 05/18/24 21:00 Temperature 98.5 F Temperature Source Oral Pulse Rate 69 63 Pulse Rate [Left Radial] 72 Respiratory Rate 16 16 14 Blood Pressure 105/47 L 94/45 L Blood Pressure [Right Arm] 148/73 H Blood Pressure Mean [Right Arm] 98 02 Sat by Pulse Oximetry 99 100 100 Oxygen Delivery Method Room Air Room Air Room Air 05/18/24 21:55 Temperature 98.2 F Temperature Source Oral Pulse Rate 87 Pulse Rate [Left Radial] Respiratory Rate 20 Blood Pressure 109/63 L Blood Pressure [Right Arm] Blood Pressure Mean [Right Arm] 02 Sat by Pulse Oximetry Oxygen Delivery Method Room Air Lab Data Lab Results 05/18/24 20:10: WBC 8.8, RBC 4.58, Hgb 13.0, Hct 40.9, MCV 89.4, MCH 28.5, MCHC 31.9, RDW 13.6, Plt Count 306, MPV 7.3 L, Neut % (Auto) 59.1, Lymph % (Auto) 34.5, [place] % (Auto) 5.0, Eos % (Auto) 0.8, Baso % (Auto) 0.7, Neut # (Auto) 5.2, Lymph # (Auto) 3.1, [place] # (Auto) 0.4, Eos # (Auto) 0.1, Baso # (Auto) 0.1, Sodium 139, Potassium 3.8, Chloride 110 H, Carbon Dioxide 26, Anion Gap 6.8, BUN 12, Creatinine 0.80, Estimated Creat Clear 98, Estimated GFR 89, Est GFR ( Amer) 108, Glucose 75, Calcium 9.2, Total Bilirubin 0.4, AST 24, ALT 15, Alkaline Phosphatase 62, Total Protein 7.6, Albumin 4.2, Globulin 3.4 H, Albumin/Globulin Ratio 1.2, TSH 1.10, Thyroxine (T4) 10.0, HCG, Quant < 2 Orders (Tests/Meds): ED MEDICATIONS Discontinued Medications Generic Name Dose Route Start Last Admin Trade Name Freq PRN Reason Stop Dose Admin Dexamethasone Sodium Phosphate 10 mg 05/18/24 20:32 05/18/24 20:46 Dexamethasone 4mg/Ml 5ml Mdv IV 05/18/24 20:33 10 mg ONCE ONE Administration Lactated Ringer's 1,000 mls @ 999 mls/hr 05/18/24 19:59 05/18/24 20:32 Lactated Ringer's 1000 Ml Bag IV 05/18/24 20:59 999 mls/hr .Q1H1M ONE Administration Meclizine HCl 25 mg 05/18/24 20:32 05/18/24 20:46 Meclizine 25mg Tablet PO 05/18/24 20:33 25 mg ONCE ONE Administration ORDERS Category Date Time Status CBC w/Auto Diff [Complete Blood Count Auto Diff] Stat Lab 05/18/24 20:10 Completed CMP [Comprehensive Metabolic Panel] Stat Lab 05/18/24 20:10 Completed HCG,Quantitative Stat Lab 05/18/24 20:10 Completed T4 (Thyroxine) Stat Lab 05/18/24 20:10 Completed TSH [Thyroid Stimulating Hormone] Stat Lab 05/18/24 20:10 Completed Medical Decision Narrative: In summary patient is a 43-year-old female who presents to the emergency department for evaluation of hot flashes dizziness and nausea. Patient is hemodynamically stable upon arrival, afebrile. Zickel exam is unremarkable and nonfocal [place] Coma Score 15 with no focal neurologic deficits. Differential diagnosis includes vestibular disorder versus medication side effect versus infection etc. Initial workup will be conducted with hematologic labs urinalysis. Initial interventions include crystalloid bolus Toradol Tylenol meclizine. Initial workup reviewed by me shows that her hematologic labs are nonactionable. Upon repeat evaluation patient acceptable resolution of symptoms. Given this patient will be discharged with prescription for Zofran. Patient to follow-up with PCP within 1 week to discuss continuing of Prozac. EKG independently interpreted sinus rhythm 65 beats a minute without ST or T wave changes concerning for acute ischemia. HI 190, QRS 76, QTc 359. [place] normal. I was consulted by the RADHA, and we discussed the complexity of the problems being addressed. I approved the treatment and management plan for this patient?s care in the Emergency Department, thus performing a substantive portion of the medical decision making. Oswaldo Guy MD Critical Care <KELLEY Scott - Last Filed: 05/18/24 21:42> Critical Care Time Critical Care Time: No
[2024-05-18 20:19] LABS: Basophils # 0.1 K/mm3 (0-0.2); Basophils % 0.7 % (0.1-2.0); Eosinophils # 0.1 K/mm3 (0.0-0.4); Eosinophils % 0.8 % (0.1-12.0); Hematocrit 40.9 % (37.0-47.0); Lymphocytes # 3.1 K/mm3 (0.7-4.5); Lymphocytes % 34.5 % (10-50); Mean Corpuscular HGB Conc 31.9 g/dL (31.8-35.4); Mean Corpuscular Hemoglobin 28.5 pg (27.0-31.2); Mean Corpuscular Volume 89.4 fl (81-99); Mean Platelet Volume 7.3 fl (7.4-10.4); Monocytes # 0.4 K/mm3 (0.1-1.0); Neutrophils # 5.2 K/mm3 (1.8-7.8); Neutrophils % 59.1 % (37.0-80.0); Platelet Count 306 K/mm3 (142-424); Red Blood Count 4.58 M/mm3 (4.20-5.40); Red Cell Distribution Width 13.6 % (11.5-17.5); White Blood Count 8.8 K/mm3 (4.8-10.8)
[2024-05-18 20:24] LABS: Chloride 110 mmol/L (98-107); Sodium 139 mmol/L (136-145)
[2024-05-18 20:25] LABS: Potassium 3.8 mmoL/L (3.5-5.1)
[2024-05-18 20:27] LABS: Alanine Aminotransferase 15 U/L (12-78); Albumin Level 4.2 g/dl (3.5-5.0); Albumin/Globulin Ratio 1.2 (1.1-1.8); Alkaline Phosphatase 62 U/L (38-126); Anion Gap 6.8 mEq/L (5-15); Aspartate Amino Transferase 24 U/L (14-36); Bilirubin,Total 0.4 mg/dl (0.2-1.3); Blood Urea Nitrogen 12 mg/dl (7-17); Calcium 9.2 mg/dl (8.4-10.2); Carbon Dioxide 26 mmol/L (22.0-30.0); Creatinine Clearance Estimated 98 mL/min (50-200); Estimated Glomerular Filt Rate 89 ml/min (>60); GFR (African American) 108 ML/MIN (>60); Globulin 3.4 g/dL (1.3-3.2); Glucose 75 mg/dl (74-100); Total Protein,Serum 7.6 g/dl (6.3-8.2)
[2024-05-18 20:30] VITALS: BP 105/47; PULSE 69; RESP 16; O2SAT 100
[2024-05-18] MEDS: LACTATED RINGERS 1000ML 1,000 ML 999 ML IV (20:32)
[2024-05-18] MEDS: DEXAMETHASONE 4MG/ML 5ML MDV 10 MG IV (20:46)
[2024-05-18] MEDS: MECLIZINE 25MG TABLET 25 MG PO (20:46)
[2024-05-18 20:49] LABS: HCG,Quantitative < 2 mIU/ml (0-5.42)
[2024-05-18 21:00] VITALS: BP 94/45; PULSE 63; RESP 14; O2SAT 100
[2024-05-18 21:55] VITALS: BP 109/63; PULSE 87; RESP 20; TEMP 36.8; O2SAT 97
== END 2024-05-18 21:56 | disposition home or self-care (01) ==
PROVIDERS: Emergency Provider Emergency Medicine; PCP Nurse Practitioner
DX: R42 Dizziness and giddiness (principal); R11.0 Nausea
CPT/HCPCS: 80053; 84436; 84443; 84702; 85025; 93005; 96361; 96374; 99284; J7120

== ENCOUNTER 2024-07-01 21:27 | Emergency (ER) | payer SELFPAY ==
[2024-07-01 21:28] VITALS: BP 117/62; PULSE 69; RESP 16; TEMP 36.7; O2SAT 97; BMI 42.5
[2024-07-01 22:00] VITALS: BP 110/55; PULSE 84; O2SAT 98
--- NOTE | 2024-07-01 22:28 | CT_ITS ---
PROCEDURE INFORMATION: Exam: CT Neck With Contrast Exam date and time: 07/02/2024 12:21 AM Age: 23 years old Clinical indication: Other: Left tonsil swelling; Additional info: L tonsil swelling, likely lighter captain, R/O rpa TECHNIQUE: Imaging protocol: Computed tomography of the neck with contrast. Radiation optimization: All CT scans at this facility use at least one of these dose optimization techniques: automated exposure control; mA and/or kV adjustment per patient size (includes targeted exams where dose is matched to clinical indication); or iterative reconstruction. Contrast material: ISOVUE; Contrast volume: 75 ml; Contrast route: IV; COMPARISON: CR XR CHEST 2V 09/16/2020 4:02 AM FINDINGS: Salivary glands: Normal. Glands are normal in size. Pharynx: There is enlargement of the left palatine tonsil with irregular central low-density component measuring up to 17 mm. The findings are compatible with a tonsillar abscess. There is no extension into the left retropharyngeal, student advisor or sublingual spaces. There is moderate enlargement and diffuse enhancement of the right palatine tonsil without abscess formation. Prevertebral and retropharyngeal spaces: See Pharynx finding. Larynx: Unremarkable. Epiglottis is normal. Thyroid: Normal. No enlarged or calcified nodules. Trachea: Visualized trachea is unremarkable. Lungs: Unremarkable as visualized. Lymph nodes: Enlarged bilateral jugular chain lymph nodes left greater than right. Bones/joints: Unremarkable. No acute fracture. Soft tissues: Unremarkable. No significant soft tissue swelling. IMPRESSION: 1. Findings consistent with left palatine tonsil abscess without extension into the surrounding spaces. 2. Inflammation of the right palatine tonsil without abscess formation. 3. Bilateral jugular chain lymphadenopathy left greater than right.
[2024-07-01 22:30] VITALS: BP 115/63; PULSE 77; O2SAT 100
[2024-07-01] MEDS: ACETAMINOPHEN 1,000MG/100ML VIAL 1000 MG IV (22:37)
[2024-07-01 22:41] LABS: Basophils # 0.1 K/mm3 (0-0.2); Basophils % 0.5 % (0.1-2.0); Eosinophils # 0.1 K/mm3 (0.0-0.4); Eosinophils % 0.7 % (0.1-12.0); Hematocrit 39.3 % (37.0-47.0); Lymphocytes # 1.9 K/mm3 (0.7-4.5); Lymphocytes % 15.7 % (10-50); Mean Corpuscular HGB Conc 30.5 g/dL (31.8-35.4); Mean Corpuscular Hemoglobin 28.6 pg (27.0-31.2); Mean Corpuscular Volume 93.5 fl (81-99); Mean Platelet Volume 7.2 fl (7.4-10.4); Monocytes # 0.8 K/mm3 (0.1-1.0); Monocytes % 6.6 % (1.7-9.3); Neutrophils # 9.4 K/mm3 (1.8-7.8); Neutrophils % 76.6 % (37.0-80.0); Platelet Count 325 K/mm3 (142-424); Red Cell Distribution Width 13.5 % (11.5-17.5); White Blood Count 12.3 K/mm3 (4.8-10.8)
[2024-07-01 22:44] LABS: Chloride 107 mmol/L (98-107)
[2024-07-01 22:45] LABS: Albumin Level 3.6 g/dl (3.5-5.0); Potassium 3.9 mmoL/L (3.5-5.1); Sodium 138 mmol/L (136-145)
[2024-07-01 22:48] LABS: Alanine Aminotransferase 16 U/L (12-78); Albumin/Globulin Ratio 1.1 (1.1-1.8); Alkaline Phosphatase 57 U/L (38-126); Anion Gap 6.9 mEq/L (5-15); Aspartate Amino Transferase 23 U/L (14-36); Bilirubin,Total 0.6 mg/dl (0.2-1.3); Blood Urea Nitrogen 6 mg/dl (7-17); Calcium 8.3 mg/dl (8.4-10.2); Carbon Dioxide 28 mmol/L (22.0-30.0); Creatinine Clearance Estimated 131 mL/min (50-200); Estimated Glomerular Filt Rate 124 ml/min (>60); GFR (African American) 150 ML/MIN (>60); Globulin 3.3 g/dL (1.3-3.2); Glucose 98 mg/dl (74-100); Total Protein,Serum 6.9 g/dl (6.3-8.2)
--- NOTE | 2024-07-01 23:01 | HMH.EDGENADL ---
Discharge Plan Disposition Chief Complaint: PAIN Prescriptions Prescriptions: No Action sertraline [Zoloft] 50 mg tablet 50 mg PO DAILY azithromycin 250 MG tablet 250 mg PO UD DOSE PK Qty: 6 0RF Rx Instructions: Take two (2) tablets today, then one (1) tablet days #2 thru #5 vrqzolsuqrtqgnx-tutjdyrto-LV 118 ML syrup 5 ml PO Q6HP PRN (Reason: Cough) Qty: 240 0RF ondansetron 4 MG tablet,disintegrating 4 mg PO BIDP PRN (Reason: Nausea) Qty: 10 0RF famotidine 20 MG tablet 20 mg PO DAILY Qty: 10 0RF ondansetron 4 mg tablet,disintegrating 4 mg PO Q6H PRN (Reason: nausea and vomiting) Qty: 10 0RF escitalopram oxalate 20 MG tablet 20 mg PO DAILY nitrofurantoin monohyd/m-cryst 100 MG capsule 100 mg PO BID 7 Days Qty: 14 0RF Referrals Follow up/Referrals: Marlene Garcia APRN [Primary Care Provider] - See instructions Print Language Print Language: Urdu Discharge ED Provider: Trisha Chicas General Adult HPI General Chief complaint: PAIN Stated complaint: left ear pain into jaw/throat strep+ Time Seen by Provider: 07/01/24 22:22 Mode of Arrival: Ambulatory Source of Information: Patient Limitations: No Limitations Description of Symptoms (Recalled from ER Triage Doc. by RN): Pt presents to ED for pain from strep throat. Pt was dx w strep on Thursday. Pt was prescribed a Z pack on Thu and then Clindamycin today. Pt states the pain is unbearable and she can't sleep. History of Present Illness HPI narrative: 23-year-old female presents to the ER for left-sided throat pain. Patient reports she was diagnosed with strep on Thursday and started on azithromycin. Patient reported worsening pain and feels like the left side of her throat was extremely swollen. She states the pain radiates down her neck and up towards her ear. Patient was not able to get into her primary care doctor today so they just empirically prescribed clindamycin which she has started to take. Patient states the pain is unbearable despite taking 600 mg of ibuprofen around 7 PM. She has not taken other medications. She is able to swallow and tolerating secretions but states her voice is different. Related Data Home Medications ?Medication ?Instructions ?Recorded ?Confirmed escitalopram oxalate 20 mg tablet 20 mg PO DAILY Anxiety 10/24/19 10/24/19 sertraline 50 mg tablet (Zoloft) 50 mg PO DAILY 05/17/21 05/17/21 Previous Rx's ?Medication ?Instructions ?Recorded nitrofurantoin 100 mg PO BID 7 days #14 caps 10/24/19 monohydrate/macrocrystals 100 mg capsule azithromycin 250 mg tablet 250 mg PO UD DOSE PK #6 tabs 02/22/21 gariwtbvchinzma-ajnjayppzilbdge-CK 5 ml PO Q6HP PRN Cough ##240 02/22/21 2 mg-30 mg-10 mg/5 mL oral syrup famotidine 20 mg tablet 20 mg PO DAILY #10 tabs 10/19/21 ondansetron 4 mg disintegrating 4 mg PO BIDP PRN Nausea #10 tabs 10/19/21 tablet ondansetron 4 mg disintegrating 4 mg PO Q6H PRN nausea and 05/18/24 tablet vomiting #10 tabs Allergies Allergy/AdvReac Type Severity Reaction Status Date / Time Penicillins Allergy Verified 05/17/21 10:33 [facility] Disclaimer: The information contained in this section may have been updated after the patient was seen, as this information can be updated by other users. Social History Smoking Status: Never smoker alcohol intake: never current occupational status: employed Travel in the last 8 weeks: Inside the [facility] housing: house ROS Obtained: Yes All systems reviewed & no additional complaints except as documented Positive ROS per HPI Physical Exam General General appearance: alert and in no apparent distress Head Head exam: atraumatic and normocephalic Eye Eye exam: Present PERRL and EOMI ENT ENT exam: Present mucous membranes moist, TM's normal bilaterally and other (Tender left cervical lymphadenopathy); Absent normal oropharynx (Erythematous, swollen tonsils, left tonsil is significantly swollen and touching the uvula causing it to deviate to the right. Airway patent.) Expanded ENT Exam External ear exam: Present normal external inspection Neck Neck exam: Present normal inspection and full ROM Chest Chest inspection: Present symmetric chest wall rise Respiratory Respiratory exam: Present normal lung sounds bilaterally; Absent respiratory distress, wheezes or stridor Cardiovascular Cardiovascular exam: Present regular rate and normal rhythm Abdominal Exam Abdominal exam: Present soft; Absent distention or tenderness Extremities Exam Extremities exam: Present full ROM Neurological Exam Neurological exam: Present alert and oriented X3; Absent motor sensory deficit Psychiatric Psychiatric exam: Present normal affect and normal mood Skin Skin exam: Present warm and dry Medical Decision Making Darius Inquiry Pt receiving controlled substance: No Vital Signs: 07/01/24 21:28 07/01/24 22:00 07/01/24 22:30 Temperature 98.1 F Temperature Source Oral Pulse Rate 84 77 Pulse Rate [Left] 69 Respiratory Rate 16 Blood Pressure 110/55 L 115/63 Blood Pressure [Right Arm] 117/62 Blood Pressure Mean [Right Arm] 80 02 Sat by Pulse Oximetry 97 98 100 Oxygen Delivery Method Room Air Lab Data Lab Results 07/01/24 22:33: WBC 12.3 H, RBC 4.20, Hgb 12.0 L, Hct 39.3, MCV 93.5, MCH 28.6, MCHC 30.5 L, RDW 13.5, Plt Count 325, MPV 7.2 L, Neut % (Auto) 76.6, Lymph % (Auto) 15.7, [place] % (Auto) 6.6, Eos % (Auto) 0.7, Baso % (Auto) 0.5, Neut # (Auto) 9.4 H, Lymph # (Auto) 1.9, [place] # (Auto) 0.8, Eos # (Auto) 0.1, Baso # (Auto) 0.1, Sodium 138, Potassium 3.9, Chloride 107, Carbon Dioxide 28, Anion Gap 6.9, BUN 6 L, Creatinine 0.60, Estimated Creat Clear 131, Estimated GFR 124, Est GFR ( Amer) 150, Glucose 98, Calcium 8.3 L, Total Bilirubin 0.6, AST 23, ALT 16, Alkaline Phosphatase 57, Total Protein 6.9, Albumin 3.6, Globulin 3.3 H, Albumin/Globulin Ratio 1.1 07/01/24 22:33 07/01/24 22:33 Orders (Tests/Meds): ED MEDICATIONS Discontinued Medications Generic Name Dose Route Start Last Admin Trade Name Freq PRN Reason Stop Dose Admin Acetaminophen 1,000 mg 07/01/24 22:28 07/01/24 22:37 Acetaminophen 1,000mg/100ml Vial IV 07/01/24 22:29 1,000 mg ONCE ONE Administration ORDERS Category Date Time Status CT soft tissue neck w con Stat Cat Scan 07/01/24 22:28 Ordered CBC w/Auto Diff [Complete Blood Count Auto Diff] Stat Lab 07/01/24 22:33 Completed CMP [Comprehensive Metabolic Panel] Stat Lab 07/01/24 22:33 Completed HCG Qualitative, Serum Stat Lab 07/01/24 22:33 Received Medical Decision Narrative: In summary, this 23-year-old female presents to the emergency department today with progressively worsening throat pain, swelling on the left. On initial evaluation patient is hemodynamically stable, afebrile, tenderness to palpation of the left side of the neck with tender lymphadenopathy, significantly swollen bilateral tonsils left greater than right causing uvula deviation to the right, patient is able to move her neck, mild hot potato voice. Differential diagnosis includes but is not limited to peritonsillar abscess, retropharyngeal abscess, strep, viral syndrome, among others. Based on these concerns, I ordered serum labs, CT imaging of the neck. Patient is currently taking clindamycin that was prescribed today and is currently due for a dose, given findings consistent with peritonsillar abscess, she is receiving IV clindamycin, IV Levaquin, oral dexamethasone for treatment. She is also receiving IV fluids and IV acetaminophen Leukocytosis, WBC 12.3, mild anemia, normal platelets, no actionable abnormalities on CMP, test negative. CT soft tissue neck pending at the time of physician handoff. Patient handed off to Dr. Tom for continued management and disposition. Critical Care Critical Care Time Critical Care Time: No
[2024-07-01 23:09] LABS: HCG Qualitative, Serum Negative (Negative)
[2024-07-01] MEDS: DEXAMETHASONE 4MG TABLET 10 MG PO (23:30)
[2024-07-01] MEDS: LEVOFLOXACIN/D5W 750 MG/150 ML 750 MG/150 ML PIGGYBACK 100 MG IV (23:30)
[2024-07-01] MEDS: LACTATED RINGERS 1000ML 1,000 ML 999 ML IV (23:30)
[2024-07-01] MEDS: CLINDAMYCIN PHOSPHATE/D5W 600 MG/50 ML PIGGYBACK 100 MG IV (23:31)
[2024-07-02] MEDS: SODIUM CHLORIDE 0.9% 10ML SYR (RAD ONLY) 10 ML IV (00:27)
[2024-07-02] MEDS: IOPAMIDOL-370 (76%);100ML BOTTLE 75 ML IV (00:27)
[2024-07-02] MEDS: LIDOCAINE 2% 20ML VIAL 5 ML IJ (01:37)
[2024-07-02 02:30] VITALS: BP 102/61; PULSE 80; RESP 16; TEMP 36.9; O2SAT 97
== END 2024-07-02 02:36 | disposition home or self-care (01) ==
PROVIDERS: Emergency Medicine; Emergency Provider Emergency Medicine; PCP Nurse Practitioner
DX: J36 Peritonsillar abscess (principal); H92.02 Otalgia, left ear; R68.84 Jaw pain; M54.2 Cervicalgia
CPT/HCPCS: 42700; 70491; 80053; 84703; 85025; 96365; 96375; 99285; J0131; J1956; J7120; J8540; Q9967